=== PATIENT | female | born 1955 | race Caucasian/White ===

== ENCOUNTER → 2017-03-16 | Outpatient (CLI) | payer BC ==
--- NOTE | 2017-03-16 15:52 | MAMMOGRAPHY REPORT ---
BILATERAL DIGITAL SCREENING MAMMOGRAM WITH CAD: 03/16/2017 CLINICAL HISTORY: Routine screening. Patient has no complaints. TECHNIQUE: Current study was also evaluated with a Computer Aided Detection (CAD) system. Bilateral CC and MLO views were obtained. COMPARISON: Comparison is made to exams dated: 03/10/2016 mammogram, 02/24/2015 mammogram, 02/22/2014 m ammogram, 02/21/2013 mammogram, 02/21/2012 mammogram, and 02/19/2011 mammogram - [facility] enter. BREAST COMPOSITION: The tissue of both breasts is almost entirely fatty. FINDINGS: No suspicious masses, calcifications, or areas of architectural distortion are noted in ei ther breast. There has been no significant interval change compared to prior exams. IMPRESSION: ACR BI-RADS CATEGORY 1: NEGATIVE There is no mammographic evidence of malignancy. A 1 year screening mammogram is recommended. The pa tient will receive written notification of the results. Approximately 10% of breast cancers are not detected with mammography. A negative mammographic report should not delay biopsy if a clinically suggestive mass is present. Brittnee Welch M.D. ah/:03/16/2017 15:18:01 Mud Temperer: Shanda Soto RT(R)(M), [facility] letter sent: Normal 1/2 BI-RADS Code: ACR BI-RADS Category 1: Negative
== END | disposition home or self-care (01) ==
LOC: C.MAMM 13:23
PROVIDERS: ATTEND Obstetrics & Gynecology
DX: Z12.31 Encounter for screening mammogram for malignant neoplasm of breast (principal)

== ENCOUNTER → 2017-12-19 | Outpatient (CLI) | payer BC | END | disposition home or self-care (01) | LOC: C.PAPS 10:04 | PROVIDERS: ATTEND Obstetrics & Gynecology | DX: Z01.419 Encounter for gynecological examination (general) (routine) without abnormal findings (principal); N95.2 Postmenopausal atrophic vaginitis ==

== ENCOUNTER → 2018-01-10 | Outpatient (CLI) | payer BC ==
[2018-01-10 09:58] LABS: ALBUMIN 3.8 gm/dl (3.4-5.0); ALT/SGPT 20 U/L (12-78); AST/SGOT 24 U/L (15-37); BLOOD UREA NITROGEN 16 mg/dl (7-18); CALCIUM 8.9 mg/dl (8.5-10.1); CARBON DIOXIDE 27 mmol/L (21-32); CHOLESTEROL 224 mg/dl (0-200); CREATININE 0.78 mg/dl (0.60-1.20); GLUCOSE 88 mg/dl (70-99); POTASSIUM 3.8 mmol/L (3.5-5.1); SODIUM 141 mmol/L (136-145)
[2018-01-10 10:09] LABS: ALKALINE PHOSPHATASE 51 U/L (45-117); LDL CHOLESTEROL CALCULATED 102 mg/dl; TOTAL PROTEIN 7.2 gm/dl (6.4-8.2)
== END | disposition home or self-care (01) ==
LOC: C.LAB1850 08:14
PROVIDERS: ATTEND Obstetrics & Gynecology
DX: Z13.220 Encounter for screening for lipoid disorders (principal); Z13.1 Encounter for screening for diabetes mellitus

== ENCOUNTER → 2018-04-03 | Outpatient (CLI) | payer BC ==
--- NOTE | 2018-04-03 13:00 | DIAGNOSTIC IMAGING REPORT ---
R LOWER EXT JOINT WITHOUT CLINICAL HISTORY: 62 years-old Female with R HIP PAIN. Acute right hip and right groin pain COMPARISON: Right hip radiographs 03/22/2018 TECHNIQUE: Multiplanar, multi sequence MRI of the right hip was performed without intravenous contrast. FINDINGS: LABRUM: Degeneration with irregularity and fraying about the bilateral mackenzie. Likely chronic tear of the anterosuperior right labrum, seen best on the oblique sagittal STIR images. There is no chondrolabral separation or paralabral cyst. Mild edema adjacent to the anterosuperior labrum is likely reactive. BONE MARROW: No acute fracture, marrow replacing process or dislocation. BURSAE: Trace fluid adjacent to the right iliopsoas insertion site about the lesser trochanter suggests developing iliopsoas bursitis, image 23 series 4. Mild enthesitis about the bilateral gluteal insertion sites at the greater trochanters. HIP JOINT: There is moderate joint space narrowing with chondral thinning and marginal spurring about the right femoral acetabular joint. Small right hip joint effusion. Mild to moderate edema of the subarticular right femoral head with minimal edema of the adjacent acetabulum. Mild subcortical cystic change about the femoral head is noted anteriorly, image 12 series 6. No evidence of avascular necrosis or fracture. Fluid is noted about the inferior joint recess. MUSCLES: Muscular signal and morphology is within normal limits. SCIATIC NERVE: The morphology and signal characteristics of the sciatic nerve appear normal. Colonic diverticulosis incidentally noted. No acute process of the intrapelvic structures. IMPRESSION: 1. 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 Mild associated subchondral cystic changes also noted with mild bone marrow edema of the adjacent acetabulum. These findings are likely reactive without acute fracture or evidence of avascular necrosis. 2. Small joint effusion. 3. Trace fluid about the right iliopsoas distal tendon suggests developing iliopsoas bursitis. 4. Mild enthesitis of the bilateral gluteal insertion sites at the greater trochanters. 5. Colonic diverticulosis. The above report was generated using voice recognition software. It may contain grammatical, syntax or spelling errors. Electronically signed by: Mikael Ac M.D. 04/03/2018 12:59 PM Dictated Date/Time: 04/03/2018 12:45 PM
== END | disposition home or self-care (01) ==
LOC: C.MRIBC 10:40
PROVIDERS: ATTEND Orthopaedic Surgery
DX: M16.11 Unilateral primary osteoarthritis, right hip (principal); M25.451 Effusion, right hip; K57.90 Diverticulosis of intestine, part unspecified, without perforation or abscess without bleeding